=== PATIENT | male | born 1975 | race Caucasian/White ===

== ENCOUNTER 2017-11-27 23:15 | Emergency (ER) | payer MEDICARE ==
[2017-11-27] MEDS ORDERED: MAG HYDROX/AL HYDROX/SIMETH ES 30 ML SUSP UDCUP ONE (23:56)
[2017-11-27] MEDS ORDERED: LIDOCAINE HCL 2% VISCOUS 15 ML UDCUP ONE (23:56)
[2017-11-28 00:42] LABS: BASOPHILS % (AUTO) 0.7 % (0.0-5.0); EOSINOPHILS % (AUTO) 0.8 % (0.0-8.0); HEMATOCRIT 39.7 % (42-54); LYMPHOCYTES % (AUTO) 38.5 % (21.0-51.0); MEAN CORPUSCULAR HEMOGLOBIN 31.2 pg (27.0-33.0); MEAN CORPUSCULAR HGB CONC 34.2 g/dL (32.0-36.0); MEAN CORPUSCULAR VOLUME 91.3 fL (79-99); MONOCYTES % (AUTO) 12.1 % (3.0-13.0); NEUTROPHILS % (AUTO) 47.9 % (40.0-77.0); NUCLEATED RED BLOOD CELLS 0.1 % (0.0-0.19); PLATELET COUNT (AUTO) 134 K/uL (130-400); RED BLOOD CELL COUNT(AUTO) 4.35 MIL/uL (4.50-6.20); RED CELL DISTRIBUTION WIDTH 14.5 % (11.0-15.5); WHITE BLOOD COUNT (AUTO) 4.5 K/uL (4.8-10.8)
[2017-11-28 00:47] LABS: CREATININE 0.8 mg/dL (0.5-1.5); POTASSIUM 3.7 mmol/L (3.5-5.1)
[2017-11-28 01:01] LABS: ALBUMIN 3.6 g/dL (3.5-5.0); TOTAL PROTEIN, SERUM 7.4 g/dL (6.0-8.3)
== END 2017-11-28 01:53 | disposition home or self-care (01) ==
LOC: EDH 23:15
DX: K21.9 Gastro-esophageal reflux disease without esophagitis (principal); Z98.890 Other specified postprocedural states; Z72.0 Tobacco use
CPT/HCPCS: 36415; 71045; 80053; 82550; 83690; 84484; 85025; 93005

== ENCOUNTER 2018-12-14 19:24 | Emergency (ER) | payer MEDICARE | END 2018-12-14 22:43 | disposition home or self-care (01) | LOC: EDH 19:24 | DX: S00.81XA Abrasion of other part of head, initial encounter (principal); F10.129 Alcohol abuse with intoxication, unspecified; Z85.841 Personal history of malignant neoplasm of brain; W18.39XA Other fall on same level, initial encounter; Y93.89 Activity, other specified; Y92.89 Other specified places as the place of occurrence of the external cause; Y99.8 Other external cause status | CPT/HCPCS: 36415; 70450; 99284; G0480 ==

== ENCOUNTER 2020-10-03 14:10 | Emergency (ER) | payer MEDICARE ==
[2020-10-03] MEDS ORDERED: LIDOCAINE HCL-MPF 1% 2ML VIAL ONE (15:25)
[2020-10-03] MEDS ORDERED: IBUPROFEN 600 MG TABLET ONE (15:26)
[2020-10-03] MEDS ORDERED: CEFTRIAXONE SODIUM 1 GM ONE (15:26)
== END 2020-10-03 15:58 | disposition home or self-care (01) ==
LOC: EDH 14:10
DX: S00.212A Abrasion of left eyelid and periocular area, initial encounter (principal); L03.211 Cellulitis of face; Z72.0 Tobacco use; X58.XXXA Exposure to other specified factors, initial encounter; Y93.89 Activity, other specified; Y92.89 Other specified places as the place of occurrence of the external cause; Y99.8 Other external cause status
CPT/HCPCS: 96372; 99283; J0696; J3490